=== PATIENT | female | born 1955 | race Caucasian/White ===

== ENCOUNTER 2024-01-21 06:40 | Emergency (ER) | payer MEDICARE, OTHER, SELFPAY ==
[2024-01-21] VITALS (9 sets, daily range): BP systolic 127–157; BP diastolic 66–92; BMI 39.4
[2024-01-21] MEDS: DECADRON 8 MG IV (07:21)
[2024-01-21] MEDS: PEPCID 20 MG IV (07:22)
--- NOTE | 2024-01-21 07:28 | ED.GENMED ---
History of Present Illness
General
Chief Complaint: Allergic Reaction
Source: patient
Exam Limitations: none
Time Seen by Provider: 01/21/24 06:47
History of Present Illness
History of Present Illness:
Patient was eating post he does in soda about 9 PM yesterday evening. [place] like she had a choking episode. Then noted tongue swelling which has persisted throughout the night. Was given 50 mg of Benadryl via the medics with moderate improvement.
No other allergic issues. Denies hives generalized itching stridor shortness of breath or other complaints. No other new medications. Patient is on a MEGHAN inhibitor.
Past History
Past History
ED Past Medical History: GERD, HTN, Hypercholesterolemia and Other (CVA)
ED Past Surgical History: Appendectomy, Bowel resection, Cholecystectomy and Other (exploratory laprascopy, splenectomy, hernia removal, gall stones)
Social History
Tobacco: Smoker
Alcohol: None
Drug: None
Personal:
Living: with family
Review of Systems
Review of Systems
All Other Systems: Not applicable
Constitutional: Denies fever or chills
Respiratory: Reports no symptoms
Cardiac: Reports no symptoms
ABD/GI: Reports no symptoms
Phy Exam
Physical Exam
Physical Exam:
GENERAL: Alert and oriented in no apparent distress
EYE: Orbits normal.
NECK: Supple, no neck swelling.
ENT: Pharynx without erythema. Airway clear. No drooling no stridor. Speech normal. Questionable slight tongue swelling suspect greater on the right side
CARDIAC: Regular rate and rhythm without any obvious murmurs.
LUNGS: Clear breath sounds,normal
ABDOMEN: Soft, without focal tenderness or distention
NEUROLOGICAL: Alert and oriented , grossly non-focal
SKIN: Warm and dry, no rash or lesion, no discoloration, skin intact.
MUSCULOSKELETAL: No edema,no deformity.Good color
PSYCH: Normal and appropriate interaction.
Course
Orders/Labs/Results
Orders:
Orders
01/21/24 06:59
Basic Metabolic Panel Urgent
Complete Blood Count/With Diff Urgent
01/21/24 07:03
IV Insert/Care/Rem.- Treatment PRN
IV Insert/Care/Rem.- Treatment PRN
Dexamethasone Sod Phosphate [Decadron] 8 mg IV NOW STA
Famotidine [Pepcid] 20 mg IV NOW STA
Pulse Ox/cont/shift [RESP] Stat
Quantity: 1
Abnormal Lab Results
01/21/24
06:59
MPV 10.9 H fL
(7.4-10.4)
Creatinine 0.5 L mg/dL
(0.6-1.0)
Glucose 120 H mg/dl
(70-99)
01/21/24 06:59
01/21/24 06:59
Vital Signs
Initial and Last Documented VS:
Initial Vital Signs
Temp Pulse Resp BP Pulse Ox
98.4 F 63 19 155/80 98
01/21/24 06:44 01/21/24 06:44 01/21/24 06:44 01/21/24 06:44 01/21/24 06:44
Last Documented Vital Signs
Temp Pulse Resp BP Pulse Ox
98.4 F 60 18 127/66 95
01/21/24 06:44 01/21/24 09:00 01/21/24 09:00 01/21/24 09:00 01/21/24 09:00
MDM/Problems Addressed
Differential Diagnosis Includes:
Tongue swelling overnight. No other allergic issues. More suspicious of MEGHAN inhibitor angioedema although allergic reaction is also a possibility. Seems to have improvement with Benadryl however. Will add Pepcid steroids and ongoing observation.
Airway stable at this time
*Pulse Oximetry
Patient hypoxic: no
*Critical Care Note
Total Time (30-74mins, 75-104mins- exclusive of procedures): Not Applicable
Update Note
Update Note:
0800..... Patient rechecked. Resting comfortably. Stable vital signs. Nontoxic. Tongue swelling is essentially unchanged. Airway is clear. Ongoing observation.
1220 ..... Patient doing well. No significant improvement. Tongue swelling essentially resolved. Stable for discharge. Will have to hold MEGHAN inhibitor
ED Attending Note
-
Portions of this chart may have been created with voice recognition software.� Occasional wrong word or��sound alike� substitutions may have occurred due to the inherent limitations of voice recognition software.
Discharge Plan
Departure
Patient Disposition: Home (Routine Discharge)
Date of Disposition: 01/21/24
Time of Disposition: 12:21
Patient with high blood pressure during this ER visit?: Yes
Discharge Problem:
Angioedema, Idiopathic versus allergic versus MEGHAN in
Instructions: Angioedema, Angioedema caused by MEGHAN inhibitor medicines, BLOOD PRESSURE
Prescriptions:
New
prednisone 50 mg tablet
50 mg PO DAILY Qty: 4 0RF
No Action
travoprost 1 DROP drops
1 drp BOTH EYES HS
amlodipine 5 MG tablet
5 mg PO DAILY
lisinopril 5 MG tablet
5 mg PO DAILY
terbinafine HCl 250 MG tablet
250 mg PO QPM
cyanocobalamin (vitamin B-12) 1,000 MCG tablet
1,000 mcg PO DAILY
pantoprazole 40 MG tablet,delayed release (DR/EC)
40 mg PO DAILY
fluticasone propionate 1 SPRAY spray,suspension
2 spray intranasal DAILYPRN PRN (Reason: allergies)
bupropion HCl 300 MG tablet extended release 24 hr
300 mg PO DAILY
atorvastatin 80 MG tablet
80 mg PO QPM Qty: 30 0RF
acetaminophen 325 MG tablet
650 mg PO Q4HPRN PRN (Reason: COS[place], mild pain, or temp >100.4F) 0RF
clopidogrel 75 MG tablet
75 mg PO DAILY Qty: 30 0RF
aspirin 81 MG tablet,delayed release (DR/EC)
81 mg PO DAILY Qty: 30 0RF
timolol maleate 1 DROP drops
1 drp BOTH EYES DAILY
Referrals:
Wu Juarez MD [Family Provider] - Follow up in 2-3 days
Activity Restrictions/Additional Instructions:
Stop your lisinopril for now.
Discussed blood pressure options with your primary physician
Take Benadryl or Kimberley or Claritin for the next 3 to 4 days
Interventions
Interventions:
*Risk Screen - Suicide Last Done: 01/21/24 06:44
*General Assessment Last Done: 01/21/24 06:44
*Neglect/Abuse Screening Last Done: 01/21/24 06:44
ED- Fall Risk Assessment Last Done: 01/21/24 06:44
*ED COVID-19 Vaccine History Last Done: 01/21/24 06:44
ED- Cardiac Assessment Last Done: 01/21/24 06:52
ED- Pulmonary Assessment Last Done: 01/21/24 06:52
ED-Skin Assessment Last Done: 01/21/24 06:52
Discharge Date and Time
Print Language: YAKUT
[2024-01-21 07:33] LABS: % Basophils 0.9 % (0-2); % Eosinophils 4.7 % (0-6); % Immature Granulocytes 0.3 % (0-0.5); % Lymphocytes 26.9 % (20.5-51.1); % Monocytes 6.1 % (1.7-9.3); % Neutrophils 61.1 % (42.2-75.2); Absolute Basophils 0.1 10^3/uL (0-0.2); Absolute Eosinophils 0.4 10^3/uL (0-0.7); Absolute Lymphocytes 2.3 10^3/uL (1.2-3.4); Absolute Monocytes 0.5 10^3/uL (0.1-0.6); Absolute Neutrophils 5.2 10^3/uL (1.4-6.5); Hematocrit 39.5 % (37.0-47.0); Hemoglobin 13.5 g/dL (12.0-16.0); Mean Corp Hgb Conc. 34.2 g/dL (33.0-37.0); Mean Corpuscular Hgb 30.4 pg (27.0-31.0); Mean Platelet Volume 10.9 fL (7.4-10.4); Nucleated Red Blood Cells % 0 %; Platelet Count 231 10^3/uL (130-400); Red Blood Cell Count 4.44 10^6/uL (4.20-5.40); Red Cell Dist. Width 13.4 % (11.5-14.5); White Blood Cell Count 8.6 10^3/uL (4.8-10.8)
[2024-01-21 07:49] LABS: Blood Urea Nitrogen 13 mg/dl (7-17); Calcium 9.1 mg/dl (8.4-10.2); Carbon Dioxide 29 mmol/L (22-30); Chloride 103 mmol/L (98-107); Estimated Creatinine Clearance 101 ml/min; Glucose 120 mg/dl (70-99); Potassium 3.7 mmol/L (3.5-5.1); Sodium 142 mmol/L (135-145); eGFR > 60.00
== END 2024-01-21 12:40 | disposition home or self-care (01) ==
LOC: EMR 06:40
PROVIDERS: EMERGENCY PHYSICIAN Emergency Medicine; FAMILY PHYSICIAN Family Medicine
DX: T78.3XXA Angioneurotic edema, initial encounter (principal); Y92.9 Unspecified place or not applicable; K21.9 Gastro-esophageal reflux disease without esophagitis; I10 Essential (primary) hypertension; E78.00 Pure hypercholesterolemia, unspecified; F17.200 Nicotine dependence, unspecified, uncomplicated; Z86.73 Personal history of transient ischemic attack (TIA), and cerebral infarction without residual deficits; Z90.49 Acquired absence of other specified parts of digestive tract
CPT/HCPCS: 99282; 96374; 96375; 80048; 85025

== ENCOUNTER 2024-08-30 06:43 | Day surgery (SDC) | payer MEDICARE, OTHER, SELFPAY | END 2024-08-30 09:44 | disposition home or self-care (01) | LOC: CATH 06:43 | PROVIDERS: ATTENDING PHYSICIAN Internal Medicine; FAMILY PHYSICIAN Family Medicine | DX: I08.1 Rheumatic disorders of both mitral and tricuspid valves (principal); I48.91 Unspecified atrial fibrillation; Q21.12 Patent foramen ovale; I10 Essential (primary) hypertension; E78.2 Mixed hyperlipidemia; K21.9 Gastro-esophageal reflux disease without esophagitis; G47.33 Obstructive sleep apnea (adult) (pediatric); Z72.0 Tobacco use; Z82.49 Family history of ischemic heart disease and other diseases of the circulatory system; Z79.01 Long term (current) use of anticoagulants | CPT/HCPCS: 93312; 93320; 93325; 92960; 93005 ==

== ENCOUNTER 2024-12-06 18:45 | Emergency (ER) | payer MEDICARE, OTHER, SELFPAY ==
[2024-12-06 18:49] VITALS: BP 166/86
[2024-12-06 21:50] VITALS: BP 153/78
--- NOTE | 2024-12-06 23:28 | ED.GENMED ---
History of Present Illness
General
Chief Complaint: Head Injury
Time Seen by Provider: 12/06/24 22:44
History of Present Illness
History of Present Illness:
69-year-old female anticoagulated on Eliquis presenting after a fall. Patient reports earlier this evening, she tripped while trying to get her groceries and fell backward, striking the right side of her head. Denies LOC. Given her
anticoagulation status, came to the hospital. Additionally notes left first toe pain. Reports that she also landed on the right side of her buttock. Denies any present headache, visual changes, chest pain, difficulty breathing, focal weakness or
sensory deficits. Denies any prodromal symptoms to her fall such as lightheadedness or dizziness. Denies additional acute medical complaints
Past History
Past History
ED Past Medical History: GERD, HTN, Hypercholesterolemia and Other (CVA)
ED Past Surgical History: Appendectomy, Bowel resection, Cholecystectomy and Other (exploratory laprascopy, splenectomy, hernia removal, gall stones)
Social History
Tobacco: Smoker
Alcohol: None
Drug: None
Personal:
Living: with family
Phy Exam
Physical Exam
Physical Exam:
General: Well-appearing, no clinical signs of dehydration, nontoxic and in no acute distress
HEENT: protecting airway
Head: atraumatic
Neck: appears supple, no midline cervical tenderness
CV: Normal heart rate, regular rhythm
Resp: No accessory muscle use, no increased work of breathing, lungs clear to auscultation bilaterally
Abd: Soft and non-distended, no tenderness to palpation
Extremities: No deformities, no swelling. Mild tenderness to the left first toe at the MTP joint, no swelling or deformity
Neuro: alert, no focal neurologic deficit
: deferred
Rectal: deferred
Psych: Normal affect
Skin: Intact
Course
Orders/Labs/Results
Orders:
Orders
12/06/24 18:52
CT Head W/o Iv Contrast Urgent
Comment:
Reason For Exam: pain injury +thinners
12/06/24 23:21
Foot, Left 3 View [CR Foot - Left Min 3 Views] Urgent
Comment:
Reason For Exam: 1st toe pain after fall
Vital Signs
Initial and Last Documented VS:
Initial Vital Signs
Temp Pulse Resp BP Pulse Ox
98.2 F 59 16 166/86 96
12/06/24 18:49 12/06/24 18:49 12/06/24 18:49 12/06/24 18:49 12/06/24 18:49
Last Documented Vital Signs
Temp Pulse Resp BP Pulse Ox
98.2 F 59 18 153/78 96
12/06/24 21:50 12/06/24 18:49 12/06/24 21:50 12/06/24 21:50 12/06/24 23:31
MDM/Problems Addressed
MDM/Problems Addressed:
69-year-old female presenting after a fall with positive head strike. Vital signs are significant for mild hypertension.
On exam patient resting comfortably, no acute distress or discomfort. GCS 15. No physical signs of trauma. CT brain obtained prior to my assessment given nursing protocol and anticoagulation status. CT brain without acute intracranial
abnormality. No tenderness to the midline spine or concern for cervical injury. No tenderness to the back, no ecchymosis to the right lower extremity. No tenderness to the chest/abdomen/pelvis. Suspect mild musculoskeletal injuries. Patient
does note left first toe pain. Will screen with x-ray imaging. Declining any medication for pain.
00:10 - X-ray without acute fracture or malalignment. Feel stable for discharge with continued outpatient supportive therapy. Return precautions discussed and patient verbalized understanding
*Pulse Oximetry
SaO2: 96
Oxygen Mode of Delivery: Room air
Patient hypoxic: no
*Critical Care Note
Total Time (30-74mins, 75-104mins- exclusive of procedures): Not Applicable
ED Attending Note
-
Portions of this chart may have been created with voice recognition software.� Occasional wrong word or��sound alike� substitutions may have occurred due to the inherent limitations of voice recognition software.
Discharge Plan
Departure
Patient Disposition: Home (Routine Discharge)
Date of Disposition: 12/07/24
Time of Disposition: 00:17
Patient with high blood pressure during this ER visit?: Yes
Condition: Good
Discharge Problem:
Fall, Head injury, Foot pain, left
Instructions: Head Injury in Adults (DC), Foot sprain - ED discharge instructions
Prescriptions:
No Action
amlodipine 5 MG tablet
10 mg PO DAILY
pantoprazole 40 MG tablet,delayed release (DR/EC)
40 mg PO DAILY
fluticasone propionate 1 SPRAY spray,suspension
2 spray intranasal BID
acetaminophen 325 MG tablet
650 mg PO Q4HPRN PRN (Reason: [place], mild pain, or temp >100.4F) 0RF
epinephrine [EpiPen] 0.3 mg/0.3 mL Auto-Injector
0.3 mg IM Q5-15M PRN (Reason: anaphylaxis)
brimonidine-timolol 0.2-0.5 % Drops
1 drp OPHTHALMIC (EYE) DAILY
desvenlafaxine succinate 50 mg Tablet Extended Release 24 Hr
50 mg PO DAILY
tafluprost (PF) 0.0015 % Dropperette
1 drp OPHTHALMIC (EYE) DAILY
Eliquis 5 mg Tablet
5 mg PO BID
atorvastatin 80 MG tablet
20 mg PO QPM
Referrals:
Wu Juarez MD [Family Provider, Family Practice]
Activity Restrictions/Additional Instructions:
You were seen in the emergency department for a fall
You were found to have normal CT imaging of your head and x-ray of your foot.
Please follow-up closely with your primary care physician.
Return to the emergency department for any worsening of your symptoms, or any development of chest pain, difficulty breathing, abdominal pain with persistent vomiting and inability to tolerate food or liquid by mouth (concern for dehydration),
weakness, headache or confusion, fever greater than 100.4, or any additional symptoms that are concerning to you.
Thank you for choosing [facility].
Interventions
Interventions:
*Risk Screen - Suicide Last Done: 12/06/24 18:49
*General Assessment Last Done: 12/06/24 21:43
*Neglect/Abuse Screening Last Done: 12/06/24 18:49
*ED- Fall Risk Assessment Last Done: 12/06/24 21:43
*ED COVID-19 Vaccine History Last Done: 12/06/24 21:43
ED- Neurological Assessment Last Done: 12/06/24 21:44
ED-Skin Assessment Last Done: 12/06/24 21:45
Discharge Date and Time
Print Language: FILIPINO
[2024-12-07] MEDS: FLEXERIL 10 MG PO (00:29)
== END 2024-12-07 00:37 | disposition home or self-care (01) ==
LOC: EMR 18:45
PROVIDERS: EMERGENCY PHYSICIAN Student in an Organized Health Care Education/Training Program; FAMILY PHYSICIAN Family Medicine
DX: S09.90XA Unspecified injury of head, initial encounter (principal); M79.675 Pain in left toe(s); M79.672 Pain in left foot; W01.0XXA Fall on same level from slipping, tripping and stumbling without subsequent striking against object, initial encounter; I10 Essential (primary) hypertension; E78.00 Pure hypercholesterolemia, unspecified; K21.9 Gastro-esophageal reflux disease without esophagitis; F17.200 Nicotine dependence, unspecified, uncomplicated; Z86.73 Personal history of transient ischemic attack (TIA), and cerebral infarction without residual deficits; Z79.01 Long term (current) use of anticoagulants; Z90.49 Acquired absence of other specified parts of digestive tract; Z98.0 Intestinal bypass and anastomosis status; Z90.81 Acquired absence of spleen; Z88.1 Allergy status to other antibiotic agents; Z88.0 Allergy status to penicillin; Z88.8 Allergy status to other drugs, medicaments and biological substances
CPT/HCPCS: 99284; 70450; 73630